=== PATIENT | female | born 1985 | race Caucasian/White ===

== ENCOUNTER 2021-10-11 22:21 | Emergency (ER) | payer BC ==
[~2021-10-11] VITALS: Ht 162.6 cm; Wt 86.1 kg
[2021-10-11 22:28] VITALS: BP 128/64
--- NOTE | 2021-10-11 23:08 | PHYS DOC ---
Past Medical History Past Surgical History: No Surgical History Smoking Status: Current Every Day Smoker Alcohol Use: Heavy Additional Information: "MODERATE" General Adult EDM: Chief Complaint: RECTAL BLEED HPI: HPI: Patient is a 36 year old female presents for evaluation of rectal bleeding. Patient states around 1400 hrs. she had a bowel movement and noticed blood in the stool. Patient states when she wiped she had blood on the toilet paper. Patient has associated rectal discomfort. Throughout the week patient and her family have had nausea vomiting and loose stools. Patient states earlier today she was constipated but did not strain. Past medical history included rectal bleeding. When patient was 17 years of age she was evaluated by GI and underwent a colonoscopy. Patient states there were no masses or polyps visualized on colonoscopy. Patient states she was not given a specific diagnosis of what caused her rectal bleeding at that time. Review of Systems: Review of Systems: Constitutional: Denies fever or chills. [] Eyes: Denies change in visual acuity. [] HENT: Denies nasal congestion or sore throat. [] Respiratory: Denies cough or shortness of breath. [] Cardiovascular: Denies chest pain or edema. [] GI: Denies abdominal pain, nausea, vomiting, bloody stools or diarrhea. [] : Denies dysuria. [] Positive rectal plain positive rectal bleeding Musculoskeletal: Denies back pain or joint pain. [] Integument: Denies rash. [] Neurologic: Denies headache, focal weakness or sensory changes. [] Endocrine: Denies polyuria or polydipsia. [] Lymphatic: Denies swollen glands. [] Psychiatric: Denies depression or anxiety. [] Heart Score: C/O Chest Pain: N/A Risk Factors: Risk Factors: DM, Current or recent (<one month) smoker, HTN, HLP, family history of CAD, obesity. Risk Scores: Score 0 - 3: 2.5% MACE over next 6 weeks - Discharge Home Score 4 - 6: 20.3% MACE over next 6 weeks - Admit for Clinical Observation Score 7 - 10: 72.7% MACE over next 6 weeks - Early Invasive Strategies Allergies: Allergies: Allergies Coded Allergies Type Severity Reaction Last Updated Verified acetaminophen Allergy Intermediate ITCHY 10/11/21 Yes hydrocodone Allergy Intermediate ITCHY 10/11/21 Yes Physical Exam: PE: Constitutional: Well developed, well nourished, no acute distress, non-toxic appearance. [] HENT: Normocephalic, atraumatic, bilateral external ears normal, oropharynx moist, no oral exudates, nose normal. [] Eyes: PERRLA, EOMI, conjunctiva normal, no discharge. [] Neck: Normal range of motion, no tenderness, supple, no stridor. [] Cardiovascular:Heart rate regular rhythm, no murmur [] Lungs & Thorax: Bilateral breath sounds clear to auscultation [] Abdomen: Bowel sounds normal, soft, no tenderness, no masses, no pulsatile masses. [] Skin: Warm, dry, no erythema, no rash. [] Back: No tenderness, no CVA tenderness. [] Extremities: No tenderness, no cyanosis, no clubbing, ROM intact, no edema. [] Neurologic: Alert and oriented X 3, normal motor function, normal sensory function, no focal deficits noted. [] Psychologic: Affect normal, judgement normal, mood normal. [] External exam performed with nursing manager [employer]. Patient did have a tender area along the 12 o'clock position of her rectum. This tissue appeared consistent with a thrombosed hemorrhoid. Over this distal to it was a tear in the skin. exam consistent with ruptured thrombosed hemorrhoid Current Patient Data: Labs: Laboratory Tests Test 10/11/21 22:44 POC Urine HCG, Qualitative Hcg negative (Negative) Vital Signs: Vital Signs Date Time Temp Pulse Resp B/P (MAP) Pulse Ox O2 Delivery O2 Flow Rate FiO2 10/11/21 22:28 98.1 93 18 128/64 (85) 100 Room Air 98.1 EKG: EKG: [] Radiology/Procedures: Radiology/Procedures: [] Course & Med Decision Making: Course & Med Decision Making Pertinent Labs and Imaging studies reviewed. (See chart for details) [] Dragon Disclaimer: Dragon Disclaimer: This electronic medical record was generated, in whole or in part, using a voice recognition dictation system. Departure Departure Impression: Primary Impression: Thrombosed external hemorrhoids Additional Impression: Rectal bleeding Disposition: HOME / SELF CARE / HOMELESS Patient Instructions: Hemorrhoids, Rectal Bleeding ROSENDO DE JESUS DO Oct 11, 2021 23:08
== END 2021-10-11 23:22 | disposition home or self-care (01) ==
LOC: ER 22:21
DX: K64.5 Perianal venous thrombosis (principal); K62.5 Hemorrhage of anus and rectum; F17.200 Nicotine dependence, unspecified, uncomplicated; F10.20 Alcohol dependence, uncomplicated; Y90.9 Presence of alcohol in blood, level not specified; Z88.5 Allergy status to narcotic agent; Z88.6 Allergy status to analgesic agent
CPT/HCPCS: 81025; 99282